=== PATIENT | female | born 1960 | race Caucasian/White ===

== ENCOUNTER → 2017-07-28 | Outpatient (CLI) | payer MEDICAID ==
--- NOTE | 2017-07-31 10:24 | RADIOLOGY REPORT PS360 ---
MRI-T-SPINE W/O COMPARISON: None HISTORY: Back pain TECHNIQUE: Standard sagittal and axial sequences were performed FINDINGS: There is normal curvature and alignment. The marrow signal is normal thoracic vertebrae except for minimal anterior endplate sclerosis and a couple of levels. The spinal canal is normal size throughout. There is no abnormal disc protrusion. The thoracic cord appears normal. IMPRESSION: Minor degenerative changes mid and lower thoracic spine, no acute pathology identified
--- NOTE | 2017-07-31 18:37 | RADIOLOGY REPORT PS360 ---
MRI-C-SPINE W/O COMPARISON: None HISTORY: Chronic neck pain TECHNIQUE: Standard sagittal and axial sequences were performed along with a myelogram sequence FINDINGS: There is straightening and axial slight reversal of the normal cervical lordosis. There is been previous anterior cervical fusion of C4-C7 with an anterior metallic plate with metallic screws. There are small hard disc osteophyte complex at the C2-3 and C3-4 levels. There is true bony spinal stenosis at the C3-4 level secondary to the combination of broad-based central hard disc osteophyte complex and mild ligamentum flavum hypertrophy. The AP diameter of the spinal canal at this level is 7.5 mm. There is total loss of CSF signal in the myelogram sequence at this level. The spinal canal is normal in size both above and low this level. There is definitely contouring of the cervical cord at C3-4 level for the reasons mentioned above. IMPRESSION: Postsurgical changes upper cervical spine from previous anterior cervical fusion combined with small hard disc osteophyte complexes at C2-3 and C3 for most prominent at the C3-4 level resulting in true bony spinal stenosis at the C3-4 level. The cervical cord otherwise appears normal above and below these levels.
== END ==
LOC: RAD 07-14 10:30
DX: M54.2 Cervicalgia (principal); M54.6 Pain in thoracic spine